=== PATIENT | male | born 1975 | race Caucasian/White ===

== ENCOUNTER 2024-04-19 17:36 | Emergency (ER) | payer OTHER ==
[~2024-04-19] VITALS: Ht 172.7 cm; Wt 79.4 kg
[2024-04-19] MEDS: IV NS 0.9% 1,000 ML BAG IV ONE (18:30)
[2024-04-19] MEDS: ONDANSETRON HCL/PF 4 MG/2 ML VIAL IVP ONE (18:30)
[2024-04-19] MEDS ORDERED: ONDANSETRON HCL/PF 4 MG/2 ML VIAL ONE (18:40)
[2024-04-19 18:55] LABS: BASOPHILS # (AUTO) 0.1 K/uL (0.0-0.2); BASOPHILS % (AUTO) 0.7 % (0.0-2.0); EOSINOPHILS % (AUTO) 0.2 % (0.0-6.0); HEMATOCRIT 39 % (39-51); HEMOGLOBIN 13.5 g/dL (13.5-17.5); LYMPHOCYTES # (AUTO) 0.9 K/uL (0.8-4.8); LYMPHOCYTES % (AUTO) 9.3 % (20.0-44.0); MEAN CORPUSCULAR HEMOGLOBIN 30 PG (26.0-33.0); MEAN CORPUSCULAR HGB CONC 35 g/dl (31.0-36.0); MEAN CORPUSCULAR VOLUME 87 fL (80-96); MONOCYTES # (AUTO) 0.2 K/uL (0.1-1.30); MONOCYTES % (AUTO) 2.1 % (2.0-12.0); NEUTROPHILS # (AUTO) 8.8 K/uL (1.8-8.9); NEUTROPHILS % (AUTO) 87.7 % (43.0-81.0); PLATELET COUNT (AUTO) 215 K/uL (150-450); RED BLOOD CELL COUNT(AUTO) 4.47 MIL/uL (4.5-6.0); RED CELL DISTRIBUTION WIDTH 13.4 % (11.5-15.0); WHITE BLOOD COUNT (AUTO) 10.1 K/uL (4.3-11.0)
[2024-04-19 19:16] LABS: ALBUMIN 4.5 g/dL (3.4-5.0); BILIRUBIN,DIRECT 0.2 mg/dL (0.0-0.2); BILIRUBIN,TOTAL 0.6 mg/dL (0.2-1.0); CALCIUM, SERUM 9.6 mg/dL (8.5-10.1); CREATININE 2.1 mg/dL (0.6-1.3); TOTAL PROTEIN, SERUM 8.8 g/dL (6.4-8.2)
[2024-04-19 20:38] LABS: APPEARANCE,URINE CLEAR (CLEAR); BILIRUBIN,URINE NEGATIVE (NEGATIVE); BLOOD, URINE TRACE-INTA Ery/uL (NEGATIVE); COLOR,URINE YELLOW (YELLOW); KETONES,URINE 1+ mg/dL (NEGATIVE); LEUKOCYTE ESTERASE ,URINE NEGATIVE (NEGATIVE); NITRITE, URINE NEGATIVE (NEGATIVE); PROTEIN,URINE 2+ mg/dl (NEGATIVE); UGLUCOSE NEGATIVE (NEGATIVE); UROBILINOGEN,URINE 0.2 EU/dL (0.2)
[2024-04-19 20:48] LABS: RBC,URINE 0-2 /HPF (0-2)
[2024-04-19 20:49] LABS: ADD URINE CULTURE NO; BACTERIA,URINE None seen /HPF (None Seen); SQUAMOUS EPITHELIAL CELL,UR Rare /HPF (None Seen); WBC,URINE NONE SEEN /HPF (0-3)
[2024-04-19 21:07] LABS: POTASSIUM 5.5 mmol/L (3.5-5.1)
[2024-04-19] MEDS ORDERED: ONDA4TAB11 PO (21:45)
[2024-04-19 21:54] VITALS: BP 140/90; TEMP 97.5; O2SAT 99
[2024-04-19] MEDS ORDERED: ALBUTEROL FS 2.5 MG/3 ML VIAL.NEB NEB ONE (22:00)
[2024-04-19] MEDS ORDERED: SODIUM POLYSTYRENE SULFONATE 15 G/60 ML BOTTLE PO ONE (22:00)
[2024-04-19] MEDS ORDERED: SODIUM ZIRCONIUM CYCLOSILICATE 10 GM POWD.PACK PO ONE (22:00)
== END 2024-04-19 21:54 | disposition home or self-care (01) ==
LOC: ER 17:44
DX: E87.5 Hyperkalemia (principal); N17.9 Acute kidney failure, unspecified; R11.2 Nausea with vomiting, unspecified; A05.9 Bacterial foodborne intoxication, unspecified; R00.0 Tachycardia, unspecified; E11.9 Type 2 diabetes mellitus without complications
CPT/HCPCS: 99284; 96374; 96361; 93005; 85025; 80048 ×2; 83690; 80076; 81001; 36415; J2405

== ENCOUNTER 2025-02-09 00:37 | Inpatient (IN) | payer OTHER ==
[~2025-02-09] VITALS: Ht 172.7 cm; Wt 81.0 kg
[2025-02-09] VITALS (10 sets, daily range): BP systolic 132–145; BP diastolic 70–82; TEMP 97.9–98.4; O2SAT 95–99
[~2025-02-09 00:37] MED LIST: ONDA4TAB11 PO
[2025-02-09 01:18] LABS: APPEARANCE,URINE CLEAR (CLEAR); BLOOD, URINE 1+ Ery/uL (NEGATIVE); LEUKOCYTE ESTERASE ,URINE NEGATIVE (NEGATIVE); NITRITE, URINE NEGATIVE (NEGATIVE); UGLUCOSE 3+ mg/dL (NEGATIVE)
[2025-02-09 01:19] LABS: PLATELET COUNT (AUTO) 236 K/uL (150-450); RED BLOOD CELL COUNT(AUTO) 4.27 MIL/uL (4.5-6.0); RED CELL DISTRIBUTION WIDTH 14.0 % (11.5-15.0); WHITE BLOOD COUNT (AUTO) 9.7 K/uL (4.3-11.0)
[2025-02-09 01:24] LABS: CALCIUM, SERUM 8.6 mg/dL (8.5-10.1); CREATININE 1.9 mg/dL (0.6-1.3); SODIUM SERUM 137.0 mmol/L (136-145); UREA NITROGEN, BLOOD 37.0 mg/dL (7-18)
[2025-02-09 01:27] LABS: ADD URINE CULTURE NO; SQUAMOUS EPITHELIAL CELL,UR Few /HPF (None Seen)
[2025-02-09 01:30] LABS: ASPARTATE AMINOTRANSFERASE 17.0 U/L (15-37); TOTAL PROTEIN, SERUM 7.2 g/dL (6.4-8.2)
[2025-02-09 01:35] LABS: LACTIC ACID 0.9 mmol/L (0.4-2.0)
[2025-02-09] MEDS ORDERED: ONDANSETRON HCL/PF 4 MG/2 ML VIAL ONE (01:35)
[2025-02-09] MEDS ORDERED: MORPHINE SULFATE INJ 4 MG/ML DISP.SYRIN ONE (01:36)
[2025-02-09] MEDS: MORPHINE SULFATE INJ 2 MG/ML DISP.SYRIN IV ONE (01:36)
[2025-02-09] MEDS: ONDANSETRON HCL/PF 4 MG/2 ML VIAL IVP ONE (01:36)
[2025-02-09] MEDS: IV NS 0.9% 1,000 ML BAG IV ONE (01:36)
[2025-02-09] MEDS ORDERED: PIPERACI/TAZO 3.375GM/D5W 50ML PB IV ONE (02:03)
[2025-02-09] MEDS: PIPERACILLIN /TAZOBACTAM 3.375 G in IV D5W 50 ML IV ONE (02:03)
[2025-02-09] MEDS ORDERED: ONDANSETRON HCL/PF 4 MG/2 ML VIAL IVP PRN (03:00)
[2025-02-09] MEDS ORDERED: ACETAMINOPHEN 325 MG TABLET PO PRN (03:00)
[2025-02-09] MEDS ORDERED: MAG HYDROX/AL HYDROX/SIMETH 30 ML UDC PO PRN (03:00)
[2025-02-09] MEDS ORDERED: MAGNESIUM HYDROXIDE 30 ML UDC PO PRN (03:00)
[2025-02-09] MEDS ORDERED: DEXTROSE 50%-WATER 50 ML DISP.SYRIN IV PRN (03:00)
[2025-02-09] MEDS ORDERED: Z GUARD REMEDY 4 OZ OINT TP PRN (03:00)
[2025-02-09] MEDS: IV LR 1000 ML 1,000 ML IV SCH (03:53)
[2025-02-09] MEDS: BLOOD SUGAR DIAGNOSTIC 1 EACH STRIP IN SCH (05:40)
[2025-02-09] MEDS: MORPHINE SULFATE INJ 4 MG/ML DISP.SYRIN IV PRN (05:51)
[2025-02-09 06:42] LABS: PLATELET COUNT (AUTO) 219 K/uL (150-450); RED BLOOD CELL COUNT(AUTO) 4.03 MIL/uL (4.5-6.0); RED CELL DISTRIBUTION WIDTH 14.1 % (11.5-15.0); WHITE BLOOD COUNT (AUTO) 11.3 K/uL (4.3-11.0)
[2025-02-09 07:17] LABS: CALCIUM, SERUM 8.7 mg/dL (8.5-10.1); CREATININE 1.8 mg/dL (0.6-1.3); PHOSPHORUS 3.6 mg/dL (2.5-4.9); SODIUM SERUM 138.0 mmol/L (136-145); UREA NITROGEN, BLOOD 33.0 mg/dL (7-18)
[2025-02-09] MEDS: PANTOPRAZOLE 40 MG VIAL IV SCH (08:41)
[2025-02-09] MEDS ORDERED: PIPERACILLIN /TAZOBACTAM 3.375 G in IV D5W 50 ML IV SCH (10:00)
[2025-02-09] MEDS: PIPERACILLIN /TAZOBACTAM 3.375 G in IV D5W 100 ML IV SCH (11:00)
[2025-02-09] MEDS ORDERED: BUPIVACAINE 0.5 % PF 150 MG/30 ML VIAL ONE (12:00)
[2025-02-09] MEDS ORDERED: LIDOCAINE 1%-EPI 1:100,000 20 ML VIAL ONE (12:00)
[2025-02-09] MEDS ORDERED: ANESTHESIA TRAY IN PYXIS 1 EA TRAY MC ONE (13:40)
[2025-02-09] MEDS ORDERED: FENTANYL PF 100MCG/2ML AMPUL ONE (13:49)
[2025-02-09] MEDS ORDERED: MIDAZOLAM HCL 2 MG/2ML VIAL ONE (13:49)
[2025-02-09] MEDS ORDERED: LIDOCAINE 2% JEL UROJET 10 ML MM ONE (13:49)
[2025-02-09] MEDS ORDERED: SUGAMMADEX SODIUM 200 MG/2 ML VIAL IV ONE (13:50)
[2025-02-09] MEDS ORDERED: ROCURONIUM BROMIDE 50 MG/5 ML ONE (13:50)
[2025-02-09] MEDS ORDERED: HYDROMORPHONE INJ 2 MG/ML DISP.SYRIN ONE (13:50)
[2025-02-09] MEDS ORDERED: FAMOTIDINE/PF INJ 20 MG/2 ML VIAL IV ONE (13:50)
[2025-02-09] MEDS ORDERED: MEPERIDINE25 MG SYR 25 MG/ML VIAL ONE (15:23)
[2025-02-09] MEDS: INSULIN REGULAR, HUMAN 100 UNIT/ML 3 ML VIAL SQ PRN (18:37)
[2025-02-10 06:39] LABS: LDL 131 mg/dL (0-99)
[2025-02-10 08:00] VITALS: BP 133/78; TEMP 98.1; O2SAT 95
[2025-02-10] MEDS: IV LR 1000 ML 1,000 ML IV PRN (11:42)
[2025-02-10 16:00] VITALS: BP 148/88; TEMP 97.9; O2SAT 97
[2025-02-11 01:06] VITALS: BP 159/86; TEMP 98.2; O2SAT 97
[2025-02-11 07:00] VITALS: BP_SYST 136; BP_SYST 152; BP_DIAS 102; BP_DIAS 89; TEMP 97.9; TEMP 98.1; O2SAT 94; O2SAT 95
[2025-02-11 07:08] LABS: PLATELET COUNT (AUTO) 201 K/uL (150-450); RED BLOOD CELL COUNT(AUTO) 3.67 MIL/uL (4.5-6.0); RED CELL DISTRIBUTION WIDTH 14.0 % (11.5-15.0); WHITE BLOOD COUNT (AUTO) 5.4 K/uL (4.3-11.0)
[2025-02-11 08:01] LABS: ASPARTATE AMINOTRANSFERASE 18.0 U/L (15-37); CALCIUM, SERUM 8.3 mg/dL (8.5-10.1); CREATININE 1.6 mg/dL (0.6-1.3); PHOSPHORUS 2.9 mg/dL (2.5-4.9); SODIUM SERUM 140.0 mmol/L (136-145); TOTAL PROTEIN, SERUM 5.9 g/dL (6.4-8.2); UREA NITROGEN, BLOOD 12.0 mg/dL (7-18)
[2025-02-11 08:04] LABS: CREATINE KINASE, TOTAL 153.0 U/L (39-308)
[2025-02-11] MEDS ORDERED: METR500T PO (11:38)
[2025-02-11] MEDS ORDERED: CIPR500S2 PO (11:38)
[2025-02-11 12:00] VITALS: BP 152/89; TEMP 98.1; O2SAT 94
[2025-02-11 16:00] VITALS: BP 157/87; TEMP 97.5; O2SAT 95
[2025-02-12 05:13] LABS: PTH, INTACT 24 pg/mL (15-65)
[2025-02-12] MEDS ORDERED: PANTOPRAZOLE 40 MG/PACK PACK PO SCH (09:00)
== END 2025-02-11 16:54 | disposition home or self-care (01) | DRG 853 ==
LOC: ER 00:45 → MED 03:16
PROVIDERS: ADMIT Student in an Organized Health Care Education/Training Program
PROC: 0DTJ4ZZ Resection of Appendix, Percutaneous Endoscopic Approach (ICD-10-PCS; principal; 2025-02-09 13:25)
DX: A41.9 Sepsis, unspecified organism (principal); K35.32 Acute appendicitis with perforation, localized peritonitis, and gangrene, without abscess; N17.0 Acute kidney failure with tubular necrosis; E11.22 Type 2 diabetes mellitus with diabetic chronic kidney disease; N18.9 Chronic kidney disease, unspecified; D64.9 Anemia, unspecified; E83.89 Other disorders of mineral metabolism; K38.1 Appendicular concretions; E11.65 Type 2 diabetes mellitus with hyperglycemia
CPT/HCPCS: 36415; 71045-TC; 76770-TC; 80048-TC; 80053-TC; 80061-TC; 80076-TC; 81001; 82550-TC; 82962-TC; 83605-TC; 83690-TC; 83735-TC; 83970; 84100-TC; 84155; 84165; 85025-TC; 87081-TC; 88304-TC; A4223; G0378; J0690; J1100; J1171; J1308; J1815; J2175; J2250; J2270; J2405; J2470; J2543; J2704; J3010; J3490; J7030; J7060; J7120